=== PATIENT | female | born 1965 | race Caucasian/White ===

== ENCOUNTER → 2017-12-07 15:36 | Outpatient (CLI) | payer BC ==
[2016-09-28 10:44] VITALS: BMI 37.3
[~2017-12-07 15:36] MED LIST: BYSTOLIC5 MG PO; CLIMARA 0.0.1 MG/PAT TD; ELIQUIS2.5 MG PO; IBUPROFEN600 MG; LISINOPRIL10 MG PO; MAXZIDE 75/501 TAB PO; MS CONTIN15 MG PO; NORVASC5 MG PO; OXYCODONE HCL5 MG PO; PERCOCET 5-3251 TAB PO; PROZAC10 MG PO; REQUIP1 MG PO; SYNTHROID125 MCG PO; SYNTHROID25 MCG PO; VOLTAREN25 MG
== END | disposition home or self-care (01) ==
LOC: D.RAD 15:36
DX: M19.041 Primary osteoarthritis, right hand (principal)